=== PATIENT | male | born 1950 | race Hispanic/Latino ===

== ENCOUNTER 2022-06-25 10:16 | Emergency (ER) | payer MEDICARE, SELFPAY ==
[2022-06-25] MEDS ORDERED: Lidocaine 2% w/Epinephrine 1:200K 20 ML VIAL ONE (10:30)
[2022-06-25] MEDS ORDERED: Bacitracin 1 PK ONE (10:57)
[2022-06-25] MEDS ORDERED: Boostrix 0.5 ML (Tdap) VIAL (>/=7 yrs of age) ONE (10:57)
== END 2022-06-25 11:21 | disposition home or self-care (01) ==
LOC: BURERS 10:16
DX: S51.812A Laceration without foreign body of left forearm, initial encounter (principal); Z23 Encounter for immunization; I10 Essential (primary) hypertension; I25.2 Old myocardial infarction; W26.0XXA Contact with knife, initial encounter
CPT/HCPCS: 12001; 90471; 90715